=== PATIENT | female | born 1960 | race Caucasian/White ===

== ENCOUNTER → 2019-03-18 | Outpatient (CLI) | payer OTHER, MEDICAID | END | disposition home or self-care (01) | LOC: SRD 13:00 → EDBD 13:00 | PROVIDERS: ATTEND Family Medicine | DX: S72.491A Other fracture of lower end of right femur, initial encounter for closed fracture (principal); M85.861 Other specified disorders of bone density and structure, right lower leg; X58.XXXA Exposure to other specified factors, initial encounter; Y93.89 Activity, other specified; Y92.89 Other specified places as the place of occurrence of the external cause; Y99.8 Other external cause status | CPT/HCPCS: 73564 ==

== ENCOUNTER 2023-06-02 12:11 | Inpatient (IN) | payer OTHER, MEDICAID ==
[~2023-06-02] VITALS: Ht 152.4 cm; Wt 52.6 kg
[2023-06-02 12:58] VITALS: BP_SYST 128; PULSE 94; RESP 18; TEMP 97; O2SAT 97
[2023-06-02] MEDS ORDERED: PRED5TAB PO (13:09)
[2023-06-02] MEDS ORDERED: TACR1CAP2 PO (13:09)
[2023-06-02 14:15] LABS: BASOPHILS % (AUTO) 0.2 % (0.0-2.0); EOSINOPHILS # (AUTO) 0.2 K/uL (0.0-0.4); EOSINOPHILS % (AUTO) 2.5 % (0.0-4.0); HEMATOCRIT 36.2 % (36-48); HEMOGLOBIN 11.9 g/dL (12.0-16.0); LYMPHOCYTES # (AUTO) 0.7 K/uL (1.0-5.5); MEAN CORPUSCULAR HEMOGLOBIN 29 pg (27-31); MEAN CORPUSCULAR HGB CONC 33 % (32-36); MEAN CORPUSCULAR VOLUME 87 fL (79.0-98.0); MONOCYTES # (AUTO) 0.4 K/uL (0.0-1.0); MONOCYTES % (AUTO) 4.4 % (1.7-9.3); NEUTROPHILS # (AUTO) 8.6 K/uL (1.8-7.7); NEUTROPHILS % (AUTO) 85.9 % (40.0-70.0); PLATELET COUNT (AUTO) 190 K/uL (130-430); RED BLOOD CELL COUNT(AUTO) 4.17 MIL/uL (4.2-6.2); RED CELL DISTRIBUTION WIDTH 15.1 % (9.0-15.0)
[2023-06-02 14:19] LABS: ERYTHROCYTE SEDIMENTATION RATE 28 MM/HR (0-20)
[2023-06-02 14:24] LABS: CREATININE 1.34 mg/dL (0.55-1.30); POTASSIUM 4.9 mmol/L (3.5-5.1)
[2023-06-02 14:59] LABS: ALBUMIN 3.5 g/dL (3.4-4.8); TOTAL BILIRUBIN 0.6 mg/dL (0.0-1.0); TOTAL PROTEIN, SERUM 7.2 g/dL (6.4-8.3)
[2023-06-02] MEDS ORDERED: D-ME120S20 PO (18:13)
[2023-06-02] MEDS ORDERED: IBUP-1503 PO (18:13)
[2023-06-02] MEDS ORDERED: AMOX-426 PO (18:13)
[2023-06-02 19:00] VITALS: BP_SYST 126; PULSE 92; RESP 16; TEMP 97.2; O2SAT 96
[2023-06-02 20:00] VITALS: BP_SYST 126; PULSE 92; RESP 16; TEMP 97.2; O2SAT 96
[2023-06-02] MEDS: ENOXAPARIN SODIUM 30 MG/0.3 ML SYRINGE SUBCUT SCH (21:00)
[2023-06-03] VITALS: BP_SYST 122; PULSE 88; RESP 16; TEMP 97.4; O2SAT 96
[2023-06-03 08:00] VITALS: BP_SYST 148; PULSE 70; RESP 17; TEMP 97.2; O2SAT 99
[2023-06-03] MEDS: TACROLIMUS ANHYDROUS 1 MG CAPSULE (PROGRAF) PO SCH ×2 (09:14→22:45)
[2023-06-03] MEDS: predniSONE 5 MG TABLET PO SCH (09:14)
[2023-06-03 12:00] VITALS: BP_SYST 138; PULSE 82; RESP 17; TEMP 97.9; O2SAT 96
[2023-06-03] MEDS: traMADol HCL HCL 50 MG TABLET (ULTRAM) PO SCH ×2 (12:00→17:51)
[2023-06-03 16:16] VITALS: BP_SYST 110; PULSE 71; RESP 17; TEMP 97.5; O2SAT 100
[2023-06-03 20:30] VITALS: BP_SYST 115; PULSE 75; RESP 18; TEMP 98.3; O2SAT 96
[2023-06-03] MEDS: ENOXAPARIN SODIUM 30 MG/0.3 ML SYRINGE SUBCUT SCH (21:00)
[2023-06-04] VITALS: O2SAT 96
[2023-06-04 00:50] VITALS: BP_SYST 101; PULSE 63; RESP 17; TEMP 97.3; O2SAT 98
[2023-06-04] MEDS: traMADol HCL HCL 50 MG TABLET (ULTRAM) PO SCH ×4 (06:00→17:18)
[2023-06-04 06:20] LABS: BASOPHILS % (AUTO) 0.8 % (0.0-2.0); EOSINOPHILS # (AUTO) 0.5 K/uL (0.0-0.4); EOSINOPHILS % (AUTO) 9.5 % (0.0-4.0); HEMATOCRIT 31.9 % (36-48); HEMOGLOBIN 10.5 g/dL (12.0-16.0); LYMPHOCYTES % (AUTO) 19.5 % (20.5-51.5); MEAN CORPUSCULAR HEMOGLOBIN 29 pg (27-31); MEAN CORPUSCULAR HGB CONC 33 % (32-36); MEAN CORPUSCULAR VOLUME 87 fL (79.0-98.0); MONOCYTES # (AUTO) 0.5 K/uL (0.0-1.0); MONOCYTES % (AUTO) 9.5 % (1.7-9.3); NEUTROPHILS % (AUTO) 60.7 % (40.0-70.0); PLATELET COUNT (AUTO) 143 K/uL (130-430); RED BLOOD CELL COUNT(AUTO) 3.68 MIL/uL (4.2-6.2); RED CELL DISTRIBUTION WIDTH 14.8 % (9.0-15.0); WHITE BLOOD COUNT (AUTO) 4.9 K/uL (4.8-10.8)
[2023-06-04 06:34] LABS: CALCIUM 7.5 mg/dL (8.4-11.0); CREATININE 0.98 mg/dL (0.55-1.30); POTASSIUM 3.8 mmol/L (3.5-5.1)
[2023-06-04 08:00] VITALS: BP_SYST 100; PULSE 72; RESP 17; TEMP 97.2; O2SAT 96; O2SAT 98
[2023-06-04] MEDS: predniSONE 5 MG TABLET PO SCH (09:09)
[2023-06-04] MEDS: TACROLIMUS ANHYDROUS 1 MG CAPSULE (PROGRAF) PO SCH ×2 (09:09→22:28)
[2023-06-04 12:00] VITALS: BP_SYST 96; PULSE 81; RESP 16; TEMP 97.4; O2SAT 98
[2023-06-04 16:00] VITALS: BP_SYST 98; PULSE 78; RESP 18; TEMP 97.1; O2SAT 97
[2023-06-05] VITALS: O2SAT 96
[2023-06-05 00:47] VITALS: BP_SYST 100; PULSE 69; RESP 16; TEMP 97.7; O2SAT 96
[2023-06-05 05:08] LABS: PROTHROMBIN TIME 10.2 SECS (9.5-12.5)
[2023-06-05 05:20] LABS: BASOPHILS % (AUTO) 0.5 % (0.0-2.0); EOSINOPHILS # (AUTO) 0.4 K/uL (0.0-0.4); EOSINOPHILS % (AUTO) 8.1 % (0.0-4.0); HEMATOCRIT 31.5 % (36-48); HEMOGLOBIN 10.3 g/dL (12.0-16.0); LYMPHOCYTES % (AUTO) 18.4 % (20.5-51.5); MEAN CORPUSCULAR HEMOGLOBIN 28 pg (27-31); MEAN CORPUSCULAR HGB CONC 33 % (32-36); MEAN CORPUSCULAR VOLUME 87 fL (79.0-98.0); MONOCYTES # (AUTO) 0.5 K/uL (0.0-1.0); MONOCYTES % (AUTO) 9.1 % (1.7-9.3); NEUTROPHILS # (AUTO) 3.5 K/uL (1.8-7.7); NEUTROPHILS % (AUTO) 63.9 % (40.0-70.0); PLATELET COUNT (AUTO) 157 K/uL (130-430); RED BLOOD CELL COUNT(AUTO) 3.62 MIL/uL (4.2-6.2); RED CELL DISTRIBUTION WIDTH 14.4 % (9.0-15.0); WHITE BLOOD COUNT (AUTO) 5.5 K/uL (4.8-10.8)
[2023-06-05 05:21] LABS: ALBUMIN 2.8 g/dL (3.4-4.8); CALCIUM 7.4 mg/dL (8.4-11.0); CREATININE 0.89 mg/dL (0.55-1.30); TOTAL BILIRUBIN 0.4 mg/dL (0.0-1.0); TOTAL PROTEIN, SERUM 5.9 g/dL (6.4-8.3)
[2023-06-05] MEDS: traMADol HCL HCL 50 MG TABLET (ULTRAM) PO SCH ×5 (05:35→23:24)
[2023-06-05 08:00] VITALS: BP_SYST 105; PULSE 80; RESP 14; TEMP 98.3; O2SAT 96; O2SAT 98
[2023-06-05] MEDS: predniSONE 5 MG TABLET PO SCH (09:00)
[2023-06-05] MEDS: TACROLIMUS ANHYDROUS 1 MG CAPSULE (PROGRAF) PO SCH ×2 (09:00→23:18)
[2023-06-05] MEDS ORDERED: WATER FOR IRRIGATION,STERILE 1,000 ML IRRIG.SOLN IR ONE (14:40)
[2023-06-05] MEDS ORDERED: NS 1000 ML IV.SOLN IV ONE (14:40)
[2023-06-05] MEDS ORDERED: fentaNYL CITRATE/PF 100 MCG/2 ML AMP ONE (14:40)
[2023-06-05] MEDS ORDERED: BUPIVACAINE /PF 0.5% 30 ML VIAL ONE (14:40)
[2023-06-05] MEDS ORDERED: NS IRRIG SOLN 1000 ML IR ONE (14:40)
[2023-06-05] MEDS ORDERED: MIDAZOLAM HCL/PF 2 MG/2 ML SYRINGE ONE (14:40)
[2023-06-05] MEDS ORDERED: THROMBIN (BOVINE) 5000 UNITS/ VIAL TP ONE (15:28)
[2023-06-05] MEDS ORDERED: LR 1,000 ML IV SCH (15:45)
[2023-06-05] MEDS ORDERED: ONDANSETRON HCL 4 MG/2 ML VIAL IVP PRN (15:45)
[2023-06-05] MEDS ORDERED: NALOXONE HCL 0.4 MG/ML AMP (NARCAN) IVP PRN (17:00)
[2023-06-05] MEDS ORDERED: MORPHINE 2 MG/ML INJ. SYRINGE IVP PRN (17:00)
[2023-06-05] MEDS ORDERED: ceFAZolin SODIUM 1 GM in D5W 100 ML IV SCH (22:00)
[2023-06-05 23:00] VITALS: O2SAT 95
[2023-06-05] MEDS: ceFAZolin SODIUM 1 GM in D5W 100 ML IV SCH (23:18)
[2023-06-06] VITALS (7 sets, daily range): BP systolic 89–113; PULSE 67–85; RESP 17–18; TEMP 97.6–99; O2SAT 95–98
[2023-06-06] MEDS: ceFAZolin SODIUM 1 GM in D5W 100 ML IV SCH ×3 (07:01→21:28)
[2023-06-06] MEDS: traMADol HCL HCL 50 MG TABLET (ULTRAM) PO SCH ×3 (07:06→20:02)
[2023-06-06] MEDS: predniSONE 5 MG TABLET PO SCH (08:59)
[2023-06-06] MEDS: TACROLIMUS ANHYDROUS 1 MG CAPSULE (PROGRAF) PO SCH ×2 (09:00→21:26)
[2023-06-06 12:26] LABS: HEMATOCRIT 31.5 % (36-48); HEMOGLOBIN 10.1 g/dL (12.0-16.0); MEAN CORPUSCULAR HEMOGLOBIN 28 pg (27-31); MEAN CORPUSCULAR HGB CONC 32 % (32-36); MEAN CORPUSCULAR VOLUME 87 fL (79.0-98.0); PLATELET COUNT (AUTO) 166 K/uL (130-430); RED BLOOD CELL COUNT(AUTO) 3.62 MIL/uL (4.2-6.2); RED CELL DISTRIBUTION WIDTH 14.5 % (9.0-15.0); WHITE BLOOD COUNT (AUTO) 13.5 K/uL (4.8-10.8)
[2023-06-06 12:46] LABS: ALBUMIN 2.8 g/dL (3.4-4.8); CALCIUM 8.4 mg/dL (8.4-11.0); CREATININE 1.07 mg/dL (0.55-1.30); POTASSIUM 4.2 mmol/L (3.5-5.1); TOTAL BILIRUBIN 0.9 mg/dL (0.0-1.0)
[2023-06-06 12:57] LABS: BAND % (MANUAL) 5 % (0-6); BASOPHILS % (MANUAL) 0 % (0-2); EOSINOPHILS % (MANUAL) 2 % (0-7); LYMPHOCYTES % (MANUAL) 10 % (20-46); MONOCYTES % (MANUAL) 9 % (0-11); PLATELET ESTIMATE ADEQUATE (ADEQUATE)
[2023-06-06] MEDS: LACTOBACILLUS RHAMNOSUS GG 1 CAP CAPSULE PO SCH (21:26)
[2023-06-07] MEDS: traMADol HCL HCL 50 MG TABLET (ULTRAM) PO SCH ×4 (00:50→18:11)
[2023-06-07] MEDS: ceFAZolin SODIUM 1 GM in D5W 100 ML IV SCH ×3 (06:13→21:11)
[2023-06-07 08:00] VITALS: BP_SYST 124; PULSE 88; RESP 18; TEMP 98.8; O2SAT 97
[2023-06-07] MEDS: LACTOBACILLUS RHAMNOSUS GG 1 CAP CAPSULE PO SCH ×2 (09:46→21:00)
[2023-06-07] MEDS: predniSONE 5 MG TABLET PO SCH (09:46)
[2023-06-07] MEDS: TACROLIMUS ANHYDROUS 1 MG CAPSULE (PROGRAF) PO SCH ×2 (10:35→22:58)
[2023-06-07 18:48] VITALS: BP_SYST 138; PULSE 92; RESP 18; TEMP 98.2; O2SAT 98
[2023-06-07 19:00] VITALS: BP_SYST 135; PULSE 92; RESP 18; TEMP 98.4; O2SAT 98
[2023-06-07 20:00] VITALS: BP_SYST 141; PULSE 98; RESP 18; TEMP 97.5; O2SAT 97
[2023-06-07 23:26] VITALS: BP_SYST 132; PULSE 90; RESP 18; TEMP 97; O2SAT 99
[2023-06-08] MEDS: traMADol HCL HCL 50 MG TABLET (ULTRAM) PO SCH ×2 (06:20→13:05)
[2023-06-08 06:42] LABS: BASOPHILS % (AUTO) 0.2 % (0.0-2.0); EOSINOPHILS # (AUTO) 0.2 K/uL (0.0-0.4); EOSINOPHILS % (AUTO) 3.1 % (0.0-4.0); HEMATOCRIT 31.9 % (36-48); HEMOGLOBIN 10.5 g/dL (12.0-16.0); LYMPHOCYTES # (AUTO) 0.7 K/uL (1.0-5.5); LYMPHOCYTES % (AUTO) 9.3 % (20.5-51.5); MEAN CORPUSCULAR HEMOGLOBIN 28 pg (27-31); MEAN CORPUSCULAR HGB CONC 33 % (32-36); MEAN CORPUSCULAR VOLUME 86 fL (79.0-98.0); MONOCYTES # (AUTO) 0.8 K/uL (0.0-1.0); MONOCYTES % (AUTO) 9.8 % (1.7-9.3); NEUTROPHILS # (AUTO) 6.1 K/uL (1.8-7.7); NEUTROPHILS % (AUTO) 77.6 % (40.0-70.0); PLATELET COUNT (AUTO) 169 K/uL (130-430); RED CELL DISTRIBUTION WIDTH 14.4 % (9.0-15.0); WHITE BLOOD COUNT (AUTO) 7.9 K/uL (4.8-10.8)
[2023-06-08 07:02] LABS: CREATININE 0.87 mg/dL (0.55-1.30); POTASSIUM 4.5 mmol/L (3.5-5.1)
[2023-06-08 08:00] VITALS: BP_SYST 104; PULSE 88; RESP 17; TEMP 98; O2SAT 97
[2023-06-08] MEDS: LACTOBACILLUS RHAMNOSUS GG 1 CAP CAPSULE PO SCH ×2 (09:00→09:59)
[2023-06-08] MEDS: TACROLIMUS ANHYDROUS 1 MG CAPSULE (PROGRAF) PO SCH (10:00)
[2023-06-08] MEDS: predniSONE 5 MG TABLET PO SCH (10:00)
[2023-06-08 12:00] VITALS: BP_SYST 110; PULSE 87; RESP 18; TEMP 98.4; O2SAT 99
[2023-06-08] MEDS: ceFAZolin SODIUM 1 GM in D5W 100 ML IV SCH (14:00)
[2023-06-08 15:14] VITALS: BP_SYST 108; PULSE 88; RESP 17; TEMP 98; O2SAT 97
== END 2023-06-08 16:18 | DRG 513 ==
LOC: SED 12:11 → SMU 16:05
PROVIDERS: ADMIT Family Medicine; ATTEND Family Medicine
PROC: 0X6T0Z0 Detachment at Left Ring Finger, Complete, Open Approach (ICD-10-PCS; principal; 2023-06-05 15:11)
DX: M86.8X4 Other osteomyelitis, hand (principal); I96 Gangrene, not elsewhere classified; M87.045 Idiopathic aseptic necrosis of left finger(s); Z94.0 Kidney transplant status; F44.4 Conversion disorder with motor symptom or deficit; D64.9 Anemia, unspecified; L08.9 Local infection of the skin and subcutaneous tissue, unspecified; R19.7 Diarrhea, unspecified; Z88.1 Allergy status to other antibiotic agents; Q05.9 Spina bifida, unspecified; Z88.2 Allergy status to sulfonamides; Z88.6 Allergy status to analgesic agent; Z91.011 Allergy to milk products; Z89.512 Acquired absence of left leg below knee; Z79.52 Long term (current) use of systemic steroids; N18.2 Chronic kidney disease, stage 2 (mild)
CPT/HCPCS: 36415; 71045; 80048; 80053; 83605; 83735; 85007; 85025; 85027; 85610-TC; 85651-TC; 85730-TC; 87040; 87081; 88305; 88311; 93005; 99285; J0690; J1650; J3010; J3465; J3490; J7030; J7060; J7507; J7512